=== PATIENT | female | born 1980 ===

== ENCOUNTER 2018-03-15 20:08 | Emergency (ER) | payer SELFPAY ==
[2018-03-15 20:08] VITALS: BMI 31.8
[2018-03-15 20:16] VITALS: BP 148/94; PULSE 87; RESP 16; TEMP 98.4; O2SAT 99
--- NOTE | 2018-03-15 20:35 | ED PDOC ---
HPI: CCC, URI, Sore Throat Chief Complaint (Provider): ENT Problem History Per: Patient History/Exam Limitations: no limitations Onset/Duration Of Symptoms: Days Location Of Pain: Ear(s) Additional Complaint(s): Yoly Montero is a 37 year old female with a past medical history of hypertension who is presenting to the ED for evaluation of left ear ringing and pain onset 2 days ago. Patient reports inability to hear put of left ear and admits to using over the counter homeopathic ear drops with no relief of symptoms. She also complains of pain when opening and closing the jaw. PMD: none provided <Lobito Lowery - Last Filed: 03/15/18 23:02> <Speedy Irby - Last Filed: 03/17/18 04:41> Time Seen by Provider: 03/15/18 20:25 Chief Complaint (Nursing): ENT Problem Past Medical History Reviewed: Historical Data, Nursing Documentation, Vital Signs Vital Signs: Last Vital Signs Temp 98.4 F 03/15/18 20:13 Pulse 87 03/15/18 20:13 Resp 16 03/15/18 20:13 BP 148/94 H 03/15/18 20:13 Pulse Ox 99 03/15/18 20:13 - Medical History PMH: HTN Denies: Chronic Kidney Disease - Surgical History Surgical History: No Surg Hx - Family History Family History: States: Unknown Family Hx - Immunization History Hx Tetanus Toxoid Vaccination: No Hx Influenza Vaccination: No Hx Pneumococcal Vaccination: No <Lobito Lowery - Last Filed: 03/15/18 23:02> Vital Signs: Last Vital Signs Temp 98.4 F 03/15/18 20:13 Pulse 87 03/15/18 20:13 Resp 16 03/15/18 20:13 BP 148/94 H 03/15/18 20:13 Pulse Ox 99 03/15/18 23:02 <Speedy Irby - Last Filed: 03/17/18 04:41> - Home Medications Home Medications: Ambulatory Orders Medication Instructions Recorded Pantoprazole Sodium [Protonix] 40 mg PO DAILY #14 ect 08/09/17 RX: Naproxen 500 mg PO BID PRN #20 tab 10/31/17 predniSONE [Prednisone] 6 tab PO DAILY #69 tab 03/15/18 - Allergies Allergies/Adverse Reactions: Allergies Allergy/AdvReac Type Severity Reaction Status Date / Time No Known Allergies Allergy Verified 03/15/18 20:13 Review of Systems ROS Statement: Except As Marked, All Systems Reviewed And Found Negative ENT: Positive for: Ear Pain, Other (jaw pain) <Lobito Lowery Filed: 03/15/18 23:02> Physical Exam - Reviewed Nursing Documentation Reviewed: Yes Vital Signs Reviewed: Yes - Physical Exam Appears: Positive for: Non-toxic, No Acute Distress Head Exam: Positive for: ATRAUMATIC, NORMAL INSPECTION, NORMOCEPHALIC ENT: Positive for: TM Is/Are (Otosclerosis to left TM, no signs of exudate and swelling, non erythematous TM) Neurologic/Psych: Positive for: Alert, Oriented. Negative for: Motor/Sensory Deficits <Lobito Lowery Filed: 03/15/18 23:02> - ECG O2 Sat by Pulse Oximetry: 99 (RA) Pulse Ox Interpretation: Normal - Progress ED Course And Treament: prednisone 60 mg x 1 dose in ED <Lobito Lowery Filed: 03/15/18 23:02> Medical Decision Making Medical Decision Making: Time: 20:25 Upon provider evaluation, patient is stable and ready for discharge. Scribe Attestation: Documented by Ingris Silva, acting as a scribe for Lobito Lowery PA-C. Provider Scribe Attestation: All medical record entries made by the Scribe were at my direction and personally dictated by me. I have reviewed the chart and agree that the record accurately reflects my personal performance of the history, physical exam, medical decision making, and the department course for this patient. I have also personally directed, reviewed, and agree with the discharge instructions and disposition. <Lobito Lowery Filed: 03/15/18 23:02> Disposition - Patient ED Disposition Is Patient to be Admitted: No - Disposition Disposition Time: 20:30 <Lobito Lowery - Last Filed: 03/15/18 23:02> <Speedy Irby - Last Filed: 03/17/18 04:41> - Clinical Impression Clinical Impression: Sensorineural hearing loss (SNHL) of left ear, Left ear pain - Disposition Referrals: Phillip Murrell MD [Staff Provider] - Condition: STABLE Prescriptions: predniSONE [Prednisone] 6 tab PO DAILY #69 tab Instructions: Hearing Loss in Adults Print Language: GEORGIAN - PA / CORPORATE LEARNING CONSULTANT / Resident Statement /DO has reviewed & agrees with the documentation as recorded. <Speedy Irby - Last Filed: 03/17/18 04:41>
== END 2018-03-15 21:27 | disposition home or self-care (01) ==
LOC: H.ER 20:08
DX: H90.5 Unspecified sensorineural hearing loss (principal); I10 Essential (primary) hypertension

== ENCOUNTER 2018-04-10 17:57 | Emergency (ER) | payer SELFPAY ==
[2018-04-10 17:57] VITALS: BMI 31.8
[2018-04-10] MEDS ORDERED: Morphine 4 MG/ML VIAL IVP ONE (18:38)
[2018-04-10] MEDS ORDERED: Sodium Chloride 0.9% 1,000 ML IV STA (18:43)
--- NOTE | 2018-04-10 19:01 | ED PDOC ---
HPI: Abdomen Time Seen by Provider: 04/10/18 18:38 Chief Complaint (Nursing): Fever Chief Complaint (Provider): Abdominal pain History Per: Patient History/Exam Limitations: no limitations Onset/Duration Of Symptoms: Days (several) Location Of Pain/Discomfort: Suprapubic Associated Symptoms: Urinary Symptoms Additional Complaint(s): Patient is a 37 y/o female with no significant PMHx who presents to the ED complaining of several days of worsening suprapubic pain now associated with fever, nausea, and left side flank pain. Patient additionally reports that she has had increased urinary frequency and burning on urination as well as urinating smaller amounts. Patient states she has had UTI in the past which this felt like but now the pain is more severe. Past Medical History Reviewed: Historical Data, Nursing Documentation, Vital Signs Vital Signs: Last Vital Signs Temp 102.8 F H 04/10/18 18:14 Pulse 135 H 04/10/18 18:14 Resp 20 04/10/18 18:14 BP 123/71 04/10/18 18:14 Pulse Ox 99 04/10/18 18:14 - Medical History PMH: HTN Denies: Chronic Kidney Disease - Family History Family History: States: Unknown Family Hx - Immunization History Hx Tetanus Toxoid Vaccination: No Hx Influenza Vaccination: No Hx Pneumococcal Vaccination: No - Home Medications Home Medications: Ambulatory Orders Medication Instructions Recorded Pantoprazole Sodium [Protonix] 40 mg PO DAILY #14 ect 08/09/17 Naproxen 500 mg PO BID PRN #20 tab 10/31/17 predniSONE [Prednisone] 6 tab PO DAILY #69 tab 03/15/18 - Allergies Allergies/Adverse Reactions: Allergies Allergy/AdvReac Type Severity Reaction Status Date / Time No Known Allergies Allergy Verified 04/10/18 18:14 Review of Systems ROS Statement: Except As Marked, All Systems Reviewed And Found Negative Constitutional: Positive for: Fever Gastrointestinal: Positive for: Nausea, Abdominal Pain Genitourinary Female: Positive for: Dysuria, Frequency Physical Exam - Reviewed Nursing Documentation Reviewed: Yes Vital Signs Reviewed: Yes - Physical Exam Appears: Positive for: Non-toxic (flushed), No Acute Distress (but in pain) Head Exam: Positive for: ATRAUMATIC, NORMOCEPHALIC Skin: Positive for: Normal Color, Warm Eye Exam: Positive for: EOMI, Normal appearance, PERRL Cardiovascular/Chest: Positive for: Regular Rate, Rhythm, Tachycardia Respiratory: Positive for: Normal Breath Sounds. Negative for: Respiratory Distress Gastrointestinal/Abdominal: Positive for: Tenderness (suprapubic and left flank) Extremity: Positive for: Normal ROM. Negative for: Pedal Edema, Deformity Neurologic/Psych: Positive for: Alert, Oriented. Negative for: Motor/Sensory Deficits - ECG O2 Sat by Pulse Oximetry: 99 (RA) Pulse Ox Interpretation: Normal Medical Decision Making Medical Decision Making: Time: 18:56 Initial Impression: Workup for pylonephritis Initial Plan: IV fluids Bladder US Kidney US Time: 19:00 Patient care endorsed to Dr. Law pending US. Scribe Attestation: Documented by Dax Middleton acting as a scribe for Joslyn Khan MD Provider Scribe Attestation: All medical record entries made by the Scribe were at my direction and personally dictated by me. I have reviewed the chart and agree that the record accurately reflects my personal performance of the history, physical exam, medical decision making, and the department course for this patient. I have also personally directed, reviewed, and agree with the discharge instructions and disposition. Disposition - Disposition
[2018-04-10 19:07] LABS: SQUAMOUS EPITHIAL 5 /hpf (0-5); URINE BACTERIA RARE (<OCC); URINE BILIRUBIN NEGATIVE (NEGATIVE); URINE BLOOD SMALL (NEGATIVE); URINE CLARITY SLIGHTY-CLOUDY (Clear); URINE COLOR YELLOW (YELLOW); URINE GLUCOSE (UA) NEG (Normal); URINE LEUKOCYTE ESTERASE SMALL Leu/uL (Negative); URINE PROTEIN 30 mg/dL (NEGATIVE); URINE UROBILINOGEN 0.2-1.0 mg/dL (0.2-1.0)
[2018-04-10 19:08] LABS: BASO # 0.1 K/uL (0.0-0.2); BASO % 0.6 % (0.0-2.0); LYMPH # 1.6 K/uL (1.0-4.3); LYMPH % 12.2 % (20.0-40.0); MEAN CELL VOLUME 80.9 fl (81.0-99.0); MEAN CORPUSCULAR HGB CONC 32.1 g/dL (33.0-37.0); MEAN PLATELET VOLUME 9.3 fl (7.2-11.7); MONO # 1.3 K/uL (0.0-0.8); MONO % 9.5 % (0.0-10.0); NEUT # 10.4 K/uL (1.8-7.0); NEUT % 77.7 % (50.0-75.0); RBC 4.99 Mil/uL (3.80-5.20); RED CELL DISTRIBUTION WIDTH 13.9 % (11.5-14.5); WHITE BLOOD COUNT 13.3 K/uL (4.8-10.8)
[2018-04-10 19:09] LABS: ALB/GLOB RATIO 1.1 (1.0-2.1); ALBUMIN 4.6 g/dL (3.5-5.0); ALT/SGPT 43 U/L (9-52); AST/SGOT 50 U/L (14-36); BLOOD UREA NITROGEN 7 mg/dl (7-17); CALCIUM 8.9 mg/dL (8.4-10.2); GFR NON-AFRICAN AMERICAN > 60; LIPASE 43 U/L (23-300)
--- NOTE | 2018-04-10 19:47 | ED PDOC ---
- Laboratory Results Result Diagrams: 04/10/18 18:50 04/10/18 18:50 - ECG O2 Sat by Pulse Oximetry: 99 (RA) Pulse Ox Interpretation: Normal Medical Decision Making Medical Decision Making: Time: 19:00 Patient care endorsed from Dr. Khan to Dr. Law pending US. R/o Pylo. Time: 22:13 US Renal COMMENTS: The right kidney measures 10.9 x 4 x 4.5 cm and the left kidney measures 11.4 x 3.9 x 4.3 cm. Both kidneys are free of hydronephrosis. There is no evidence of solid or cystic mass. There is no perinephric fluid. There is no renal calculus. Both kidneys demonstrate inhomogeneous cortex. The urinary bladder distends normally. The urinary bladder wall thickness measures 6 mm. Pre-void volume is 10.5 x 7.4 x 9.8 cm; 398.7 ml. There is no evidence of obvious intrinsic or extrinsic mass. There is minimal post-void residual identified on the post-void portion of the examination. Post-void volume is 1.6 x 1.2 x 2.4; 2.4 ml. There is no evidence of obvious pelvic mass. Bilateral ureteral jets are observed. IMPRESSION: 1. Inhomogeneous kidneys bilaterally. Consider follow up with CT Urogram to exclude pyelonephritis. 2. Post-void volume of 2.4 ml. Time: 22:41 CT Abd/Pelvis ordered. Time: 0319 Ct Abdomen/Pelvis FINDINGS: LUNG BASES: Bibasilar confluent opacities compatible with pneumonia. LIVER: Unremarkable. GALLBLADDER AND BILE DUCTS: The gallbladder appears within normal limits. No radioopaque gallstones are seen. No biliary ductal dilatation is evident. PANCREAS: Unremarkable. SPLEEN: Unremarkable. ADRENAL GLANDS: Unremarkable. KIDNEYS, URETERS, AND BLADDER: The kidneys appear within normal limits. There is no hydronephrosis or hydroureter. No urinary calculi are seen. STOMACH AND BOWEL: Thick walled descending sigmoid and colon and rectum with adjacent mild stranding compatible with proctolitis. Infectious and inflammatory etiologies are considered. Consider follow up with colonoscopy. APPENDIX: No evidence of acute appendicitis on CT examination. PERITONEUM: No free fluid. No free air. LYMPH NODES: No lymphadenopathy is evident. REPRODUCTIVE: Unremarkable as visualized. VASCULATURE: No evidence of abdominal aortic aneurysm. BONES: No aggressive appearing osseous lesion. No acute osseous pathology evident. IMPRESSION: 1. Proctolitis. Infectious and inflammatory etiologies are considered. Consider follow up with colonoscopy. 2. Bibasilar confluent opacities compatible with pneumonia. 0525 Patient is medically stable for discharge and instructed to follow up to cover proctocolitis and pneumonia pt states feels better, in no distress pt instructed to follow up with pcp and get referral for GI for further workup pt agreeable . Scribe Attestation: Documented by Dax Middleton acting as a scribe for Asif Law MD. Provider Scribe Attestation: All medical record entries made by the Scribe were at my direction and personally dictated by me. I have reviewed the chart and agree that the record accurately reflects my personal performance of the history, physical exam, medical decision making, and the department course for this patient. I have also personally directed, reviewed, and agree with the discharge instructions and disposition. Disposition - Clinical Impression Clinical Impression: Proctocolitis, Pneumonia - POA Present On Arrival: None - Disposition Disposition: Routine/Home Disposition Time: 05:25 Condition: STABLE Additional Instructions: follow up with your primary doctor dr amado in 1-2 days for referral to GI doctor return to the ED with any worsening or concerning symptoms Prescriptions: Amoxicillin/Clavulanate [Augmentin 875 MG-125 MG] 1 tab PO BID #20 tab Instructions: Pneumonia in Adults, Proctitis Forms: [employer] (C[place]ican), [employer] (Mauritian), [facility] ED School/Work Excuse Print Language: FRENCH
[2018-04-10] MEDS ORDERED: Iohexol 240 (50 ml) PO ONE (22:41)
[2018-04-11] MEDS ORDERED: Iohexol 240 (50 ml) ONE
[2018-04-11] MEDS ORDERED: Iohexol 300 100 ML IJ ONE (01:42)
[2018-04-11] MEDS ORDERED: Sodium Chloride 0.9% 50 ML IV ONE (01:42)
[2018-04-11 03:33] VITALS: TEMP 98
[2018-04-11 05:36] VITALS: BP 110/59; PULSE 84; RESP 20
[2018-04-11 06:38] VITALS: O2SAT 99
--- NOTE | 2018-04-11 10:35 | CT ---
Date of service: 04/11/2018 PROCEDURE: CT Abdomen and Pelvis with contrast HISTORY: abd pain COMPARISON: None. TECHNIQUE: Contrast dose: 95 mL of Omnipaque 300 intravenously. Axial and reformatted coronal and sagittal CT images of the abdomen and pelvis were obtained after IV and oral contrast administration. Radiation dose: Total exam DLP = 603.18 mGy-cm. This CT exam was performed using one or more of the following dose reduction techniques: Automated exposure control, adjustment of the mA and/or kV according to patient size, and/or use of iterative reconstruction technique. FINDINGS: LOWER THORAX: There are small linear opacities at the lung bases likely atelectasis. No evidence of pleural effusion LIVER: Mild hepatic steatosis is noted. GALLBLADDER AND BILE DUCTS: Unremarkable. PANCREAS: Unremarkable. No gross lesion or ductal dilatation. SPLEEN: Unremarkable. ADRENALS: Unremarkable. No mass. KIDNEYS AND URETERS: There is patchy enhancement of the left kidney associated with mild dilatation of the collecting system which demonstrate diffuse wall thickening. Findings suspicious for pyelonephritis and UTI. The right kidney is grossly unremarkable. VASCULATURE: Unremarkable. No aortic aneurysm. No aortic atherosclerotic calcification or mural plaque present. BOWEL: There is nonspecific mild fat stranding adjacent to the descending and proximal sigmoid colon. No definite evidence of diverticulitis or colitis in this study. No evidence of bowel obstruction. APPENDIX: Normal appendix. PERITONEUM: Unremarkable. No free fluid. No free air. LYMPH NODES: Unremarkable. No enlarged lymph nodes. BLADDER: Unremarkable. REPRODUCTIVE: Unremarkable. BONES: No acute fracture. OTHER FINDINGS: None. IMPRESSION: Findings suggestive of pyelonephritis and UT I. No evidence of abscess formation or obstructing stone. Nonspecific slight fat stranding noted adjacent to the left colon without definite CT evidence of diverticulitis or colitis. Preliminary report was submitted to the referring physician. The above findings concerning for pyelonephritis were not mentioned in the preliminary report. The above findings were reported to and discussed with the PA in the emergency roomDeshaun Garcias at 10:15 a.m. on 04/11/2018.
--- NOTE | 2018-04-11 12:53 | US ---
Date of service: 04/10/2018 PROCEDURE: Ultrasound of the Kidneys HISTORY: rule out pyelonephritis COMPARISON: None available. TECHNIQUE: Sonogram of the kidneys. FINDINGS: RIGHT KIDNEY: Measures: 10.9 x 4 x 4.5 cm. Normal in size, contour and with mild heterogeneous echogenicity. No stone, solid mass lesion or hydronephrosis visualized. LEFT KIDNEY: Measures: 11.4 x 3.9 x 4.3 cm. Normal in size, contour and with mild heterogeneous echogenicity. No stone, solid mass lesion or hydronephrosis visualized. OTHER FINDINGS: The urinary bladder is grossly unremarkable. Bilateral ureteral jets are noted. The calculated postvoid residual in the bladder is 2.3 m IMPRESSION: Heterogeneous echogenicity of the kidneys more prominent on the left. No evidence of significant hydronephrosis or obstructing stone. Preliminary report with concordant findings was submitted to the referring physician.
--- NOTE | 2018-04-11 13:01 | CARD ---
APPROVED REPORT Date of service: 04/10/2018 EKG Measurement Heart [id number] <Conclusion> Sinus tachycardia Otherwise normal ECG
== END 2018-04-11 05:44 | disposition home or self-care (01) ==
LOC: H.ER 17:57
DX: J18.9 Pneumonia, unspecified organism (principal); K51.30 Ulcerative (chronic) rectosigmoiditis without complications; I10 Essential (primary) hypertension
CPT/HCPCS: 74177; 76770; 76857; 80053; 81003; 81025; 83690; 85025; 87040; 87086; 87181; 93005; 96361; 96374; 96375; 99284; J1885; J2270; J7030; Q9966; Q9967

== ENCOUNTER 2018-04-12 21:37 | Inpatient (IN) | payer OTHER ==
[2018-04-12 21:38] VITALS: BMI 31.8
[2018-04-12] MEDS ORDERED: Sodium Chloride 0.9% 1,000 ML IV STA (22:39)
[2018-04-12] MEDS ORDERED: Morphine 4 MG/ML VIAL IVP ONE (22:39)
[2018-04-12] MEDS ORDERED: cefTRIAXone (Rocephin) 1 gm Inj ONE (22:47)
[2018-04-12] MEDS ORDERED: Morphine 4 MG/ML VIAL ONE (22:47)
[2018-04-12 23:12] LABS: BASO # 0.1 K/uL (0.0-0.2); BASO % 0.7 % (0.0-2.0); EOS % 0.1 % (0.0-4.0); HEMOGLOBIN 12.2 g/dL (12.0-16.0); LYMPH # 1.9 K/uL (1.0-4.3); LYMPH % 15.4 % (20.0-40.0); MEAN CELL VOLUME 79.4 fl (81.0-99.0); MEAN CORPUSCULAR HEMOGLOBIN 26.1 pg (27.0-31.0); MEAN CORPUSCULAR HGB CONC 32.9 g/dL (33.0-37.0); MEAN PLATELET VOLUME 9.2 fl (7.2-11.7); MONO # 1.1 K/uL (0.0-0.8); MONO % 9.3 % (0.0-10.0); NEUT % 74.5 % (50.0-75.0); NRBC % 0.1 % (0.0-0.0); RBC 4.67 Mil/uL (3.80-5.20); RED CELL DISTRIBUTION WIDTH 13.7 % (11.5-14.5); WHITE BLOOD COUNT 12.1 K/uL (4.8-10.8)
[2018-04-12 23:17] LABS: VENOUS BLOOD GAS BASE EXCESS 2.2 mmol/L (0.0-2.0); VENOUS BLOOD GAS PCO2 33 mmHg (40-60); VENOUS BLOOD GAS PO2 49 mm/Hg (30-55); VENOUS BLOOD PH 7.49 (7.32-7.43)
[2018-04-12 23:19] LABS: SQUAMOUS EPITHIAL 15 /hpf (0-5); URINE BACTERIA RARE (<OCC); URINE BILIRUBIN NEGATIVE (NEGATIVE); URINE BLOOD SMALL (NEGATIVE); URINE CLARITY CLOUDY (Clear); URINE COLOR YELLOW (YELLOW); URINE GLUCOSE (UA) NEG (Normal); URINE LEUKOCYTE ESTERASE TRACE Leu/uL (Negative); URINE PROTEIN 30 mg/dL (NEGATIVE)
--- NOTE | 2018-04-12 23:26 | ED PDOC ---
HPI: Abdomen Time Seen by Provider: 04/12/18 22:27 Chief Complaint (Nursing): Abdominal Pain Chief Complaint (Provider): Abdominal Pain History Per: Patient History/Exam Limitations: no limitations Onset/Duration Of Symptoms: Days (x5) Additional Complaint(s): Patient is a 37 y/o female who presents to the ED complaining of fever, abdominal pain, and back pain, onset x5 days ago. Patient reports associated nausea as well as some dysuria and a little bit of vomiting. Patient states she was seen here April 10 and had labs and CT done with diagnosis of colitis and was discharged with Augmentin. Patient reports she has been taking her medications as indicated but the pain has not been getting better. Patient additionally states that she was called by someone at the ED to return here. PMD: Jabari Rios Past Medical History Reviewed: Historical Data, Nursing Documentation, Vital Signs Vital Signs: Last Vital Signs Temp 100.4 F H 04/12/18 22:10 Pulse 120 H 04/12/18 22:10 Resp 16 04/12/18 22:10 BP 134/79 04/12/18 22:10 Pulse Ox 97 04/12/18 22:10 - Medical History PMH: HTN Denies: Chronic Kidney Disease - Surgical History Surgical History: - Family History Family History: States: No Known Family Hx, Unknown Family Hx - Social History Current smoker - smoking cessation education provided: No Alcohol: None Drugs: Denies - Immunization History Hx Tetanus Toxoid Vaccination: No Hx Influenza Vaccination: No Hx Pneumococcal Vaccination: No - Home Medications Home Medications: Ambulatory Orders Medication Instructions Recorded Amoxicillin/Clavulanate [Augmentin 1 tab PO BID #20 tab 04/11/18 875 MG-125 MG] - Allergies Allergies/Adverse Reactions: Allergies Allergy/AdvReac Type Severity Reaction Status Date / Time No Known Allergies Allergy Verified 04/12/18 22:10 Review of Systems ROS Statement: Except As Marked, All Systems Reviewed And Found Negative Constitutional: Positive for: Fever Gastrointestinal: Positive for: Nausea, Abdominal Pain, Diarrhea. Negative for: Vomiting Genitourinary Female: Positive for: Dysuria Physical Exam - Reviewed Nursing Documentation Reviewed: Yes Vital Signs Reviewed: Yes - Physical Exam Appears: Positive for: Well, Non-toxic, No Acute Distress Head Exam: Positive for: ATRAUMATIC, NORMOCEPHALIC Skin: Positive for: Normal Color, Warm. Negative for: Rash Eye Exam: Positive for: EOMI, Normal appearance, PERRL ENT: Positive for: Normal ENT Inspection Neck: Positive for: Normal, Painless ROM, Supple Cardiovascular/Chest: Positive for: Regular Rate, Rhythm, Tachycardia Respiratory: Positive for: Normal Breath Sounds. Negative for: Respiratory Distress Gastrointestinal/Abdominal: Positive for: Tenderness (epigastric) Back: Positive for: L CVA Tenderness, R CVA Tenderness Extremity: Positive for: Normal ROM. Negative for: Pedal Edema Neurologic/Psych: Positive for: Alert, Oriented. Negative for: Motor/Sensory Deficits - Laboratory Results Result Diagrams: 04/12/18 22:50 - ECG O2 Sat by Pulse Oximetry: 97 (RA) Pulse Ox Interpretation: Normal Medical Decision Making Medical Decision Making: Time: 22:39 Initial Impression: Abdominal pain, back pain, fever Differential includes UTI, pyelonephritis, sepsis Initial Plan: VBG Shock panel CMP Lipase CBC w/ diff Morphine IV fluids Rocephin Acetaminophen Blood culture Urine C&S Time: 23:13 Discussed with Wilber Felix who said patient needs to be admitted to hospitalist here. Spoke with Dr. Walton for admission. Following is patient's CT from her visit to ED on 04/10/18 Time: 22:31 CT AP w/ contrast FINDINGS: LOWER THORAX: There are small linear opacities at the lung bases likely atelectasis. No evidence of pleural effusion LIVER: Mild hepatic steatosis is noted. GALLBLADDER AND BILE DUCTS: Unremarkable. PANCREAS: Unremarkable. No gross lesion or ductal dilatation. SPLEEN: Unremarkable. ADRENALS: Unremarkable. No mass. KIDNEYS AND URETERS: There is patchy enhancement of the left kidney associated with mild dilatation of the collecting system which demonstrate diffuse wall thickening. Findings suspicious for pyelonephritis and UTI. The right kidney is grossly unremarkable. VASCULATURE: Unremarkable. No aortic aneurysm. No aortic atherosclerotic calcification or mural plaque present. BOWEL: There is nonspecific mild fat stranding adjacent to the descending and proximal sigmoid colon. No definite evidence of diverticulitis or colitis in this study. No evidence of bowel obstruction. APPENDIX: Normal appendix. PERITONEUM: Unremarkable. No free fluid. No free air. LYMPH NODES: Unremarkable. No enlarged lymph nodes. BLADDER: Unremarkable. REPRODUCTIVE: Unremarkable. BONES: No acute fracture. OTHER FINDINGS: None. IMPRESSION: Findings suggestive of pyelonephritis and UT I. No evidence of abscess formation or obstructing stone. Nonspecific slight fat stranding noted adjacent to the left colon without definite CT evidence of diverticulitis or colitis. Preliminary report was submitted to the referring physician. The above findings concerning for pyelonephritis were not mentioned in the preliminary report. Scribe Attestation: Documented by Dax Middleton acting as a scribe for Malachi Gonzalez MD Provider Scribe Attestation: All medical record entries made by the Scribe were at my direction and personally dictated by me. I have reviewed the chart and agree that the record accurately reflects my personal performance of the history, physical exam, medical decision making, and the department course for this patient. I have also personally directed, reviewed, and agree with the discharge instructions and disposition. Disposition - Clinical Impression Clinical Impression: Pyelonephritis, Sepsis - Patient ED Disposition Is Patient to be Admitted: Yes Discussed With DrLuis Alberto: Dilma Walton Doctor Will See Patient In The: ED Counseled Patient/Family Regarding: Studies Performed, Diagnosis - Disposition Disposition Time: 23:00 Condition: FAIR - Pt Status Changed To: Hospital Disposition Of: Inpatient - Admit Certification Admit to Inpatient:: After my assessment, the patient will require hospitalization for at least two midnights. This is because of the severity of symptoms shown, intensity of services needed, and/or the medical risk in this patient being treated as an outpatient. - POA Present On Arrival: None
[2018-04-13 00:02] LABS: ALBUMIN 4.2 g/dL (3.5-5.0); ALT/SGPT 64 U/L (9-52); AST/SGOT 67 U/L (14-36); BLOOD UREA NITROGEN 4 mg/dl (7-17); CALCIUM 8.6 mg/dL (8.4-10.2); GFR NON-AFRICAN AMERICAN > 60; LIPASE 61 U/L (23-300)
[2018-04-13] MEDS: Sodium Chloride 0.9% 1,000 ML IV SCH ×3 (00:40→18:14)
--- NOTE | 2018-04-13 02:31 | CP.PCM.HP ---
Addendum entered and electronically signed by George Cunningham MD 04/13/18 09:57: pt seen and evaluated at bedside this morning. No acute events overnight. NAD. Afebrile, pt reports mild nausea but tolerated breakfast. Reports improved pain in her left back. No vomiting/diarrhea overnight. Denies fever/chills, CP/SOB/Palpitations, V/D/C/, urinary symptoms. O: Gen: AAOx3, NAD CVS: RRR, S1S2+, No MRG RESP: CTA b/l, no WRR Abd: +BS, Soft, NonTender/Nondistended/No guarding/no rigidity Back: Negative goldflams sign b/l Ext: no edema, DP pulses 2+ b/l A/P: 37 y/o female with PMHx remarkable for migraines, admitted for pyelonephritis -hemodynamically stable, afebrile -switched IV cipro to Rocephin -awaiting urine cx -fever/pain control -follow up AM labs for transaminemia/hypokalemia -c/w Lovenox for DVT PPx Original Note: History of Present Illness - History of Present Illness History of Present Illness: Pt is a 37 y/o female with pmhx of Migraines seen in ED 2 days ago, returns to ED today after being called and told she had abnormal CT findings and should return. Pt states she has had intermittent fevers, headache, and left flank pain for the past 6 days. 2 days ago she began feeling dysuria with frequent urination which prompted her ED visit on 04/10. During that ED visit, she was noted to be septic (fever 102.8, Tachycardia 135, WBC 13.3), U/A small LES and 10 RBC, and Abdominal CT prelim reading was significant for pneumonia and proctolitis. She was sent home on Augment po. Final report for Abdomen Pelvis CT was significant for Left Pyelonephritis (no proctitis or pnuemonia). Pt was called and informed of results and advised to return to ED. She reports continued urinary symptoms, flank pain, nausea fever, and headache. Has been taking Augmentin. Denies vomiting, anuria, hematuria, neck stiffness, motor/sensory deficits, cough/congestion, chest pain, or sob. ROS:Diarrhea (3 loose stools this morning), 10 point ROS negative unless otherwise mentioned in HPI PMD: None. Was being seen at [facility] but no longer covered by insurance PMHX: Migraines Medication: Unknown medication for migraine NKDA PSurgHx: 2 Csections (2009, 1999) Social: Lives with 2 children, denies smoking, alcohol, or illicit drug use ED COURSE: -Tachycardic 120, Febrile 100.4F, WBC 12.1, K 3.4, AST/ALT 67/64 -S/P Morphine 4mg IV, Zofran 4mg IV -S/P 1L Bolus NS -S/P 1gm Rocephin Admitted for Med/Surg for Sepsis, Pyelonephritis Present on Admission - Present on Admission Any Indicators Present on Admission: No Review of Systems - Cardiovascular Cardiovascular: absent: Chest Pain, Dyspnea, Leg Edema - Respiratory Respiratory: absent: Cough, Dyspnea - Gastrointestinal Gastrointestinal: absent: Hematochezia, Melena, Vomiting - Genitourinary Genitourinary: Dysuria, Flank Pain, Urinary Frequency, Urinary Urgency Past Patient History - Infectious Disease Hx of Infectious Diseases: None - Tetanus Immunizations Tetanus Immunization: Up to Date - Past Social History Alcohol: None Drugs: Denies - CARDIAC Hx Hypertension: Yes - PULMONARY Hx Respiratory Disorders: No - NEUROLOGICAL Hx Neurological Disorder: No - HEENT Hx HEENT Problems: No - RENAL Hx Chronic Kidney Disease: No - ENDOCRINE/METABOLIC Hx Endocrine Disorders: No - HEMATOLOGICAL/ONCOLOGICAL Hx Blood Disorders: No - INTEGUMENTARY Hx Dermatological Problems: No - MUSCULOSKELETAL/RHEUMATOLOGICAL Hx Musculoskeletal Disorders: No - GASTROINTESTINAL Hx Gastrointestinal Disorders: No - GENITOURINARY/GYNECOLOGICAL Hx Genitourinary Disorders: No - PSYCHIATRIC Hx Psychophysiologic Disorder: No Hx Substance Use: No - SURGICAL HISTORY Hx Surgeries: No - ANESTHESIA Hx Anesthesia: No Meds Allergies/Adverse Reactions: Allergies Allergy/AdvReac Type Severity Reaction Status Date / Time No Known Allergies Allergy Verified 04/12/18 22:10 Physical Exam - Constitutional Appears: No Acute Distress (uncomfortable appearing) - Head Exam Head Exam: ATRAUMATIC, NORMAL INSPECTION - Eye Exam Eye Exam: Normal appearance, PERRL. absent: Scleral icterus - ENT Exam ENT Exam: Mucous Membranes Moist - Neck Exam Neck exam: Positive for: Full Rom. Negative for: Lymphadenopathy, Meningismus - Respiratory Exam Respiratory Exam: Clear to Auscultation Bilateral. absent: Accessory Muscle Use, Rales, Rhonchi, Wheezes - Cardiovascular Exam Cardiovascular Exam: Tachycardia, +S1, +S2. absent: Systolic Murmur - GI/Abdominal Exam GI & Abdominal Exam: Normal Bowel Sounds, Soft, Tenderness (Suprapubic, Left Flank). absent: Guarding - Extremities Exam Extremities exam: Positive for: normal inspection - Back Exam Back exam: CVA tenderness (L) - Neurological Exam Neurological exam: Alert, Oriented x3 - Psychiatric Exam Psychiatric exam: Anxious - Skin Skin Exam: Normal Color Results - Vital Signs Recent Vital Signs: Last Vital Signs Temp 98.5 F 04/13/18 01:06 EDT Pulse 99 H 04/12/18 23:29 Resp 17 04/12/18 23:29 BP 128/75 04/12/18 23:29 Pulse Ox 97 04/12/18 23:46 - Labs Result Diagrams: 04/12/18 22:50 04/12/18 23:34 Labs: Laboratory Results - last 24 hr 04/12/18 04/12/18 04/12/18 22:50 22:50 23:01 WBC 12.1 H RBC 4.67 Hgb 12.2 Hct 37.1 MCV 79.4 L MCH 26.1 L MCHC 32.9 L RDW 13.7 Plt Count 459 H MPV 9.2 Neut % (Auto) 74.5 Lymph % (Auto) 15.4 L Lander % (Auto) 9.3 Eos % (Auto) 0.1 Baso % (Auto) 0.7 Neut # (Auto) 9.0 H Lymph # (Auto) 1.9 Lander # (Auto) 1.1 H Eos # (Auto) 0.0 Baso # (Auto) 0.1 pO2 49 VBG pH 7.49 H VBG pCO2 33 L VBG HCO3 26.4 VBG Total CO2 26.1 VBG O2 Sat (Calc) 91.9 H VBG Base Excess 2.2 H VBG Potassium 4.6 Sodium 132.0 Chloride 104.0 Glucose 116 H Lactate 1.8 FiO2 21.0 Potassium Carbon Dioxide Anion Gap BUN Creatinine Est GFR ( Amer) Est GFR (Non-Af Amer) Random Glucose Calcium Total Bilirubin AST ALT Alkaline Phosphatase Total Protein Albumin Globulin Albumin/Globulin Ratio Lipase Venous Blood Potassium 4.6 Urine Color Yellow Urine Clarity Cloudy Urine pH 6.0 Ur Specific [place] 1.017 Urine Protein 30 Urine Glucose (UA) Neg Urine Ketones Negative Urine Blood Small Urine Nitrate Negative Urine Bilirubin Negative Urine Urobilinogen 4.0 H Ur Leukocyte Esterase Trace Urine RBC (Auto) 6 H Urine Microscopic WBC 9 H Ur Squamous Epith Cells 15 H Urine Bacteria Rare 04/12/18 23:34 WBC RBC Hgb Hct MCV MCH MCHC RDW Plt Count MPV Neut % (Auto) Lymph % (Auto) [place] % (Auto) Eos % (Auto) Baso % (Auto) Neut # (Auto) Lymph # (Auto) [place]ander # (Auto) Eos # (Auto) Baso # (Auto) pO2 VBG pH VBG pCO2 VBG HCO3 VBG Total CO2 VBG O2 Sat (Calc) VBG Base Excess VBG Potassium Sodium 138 Chloride 105 Glucose Lactate FiO2 Potassium 3.4 L Carbon Dioxide 22 Anion Gap 14 BUN 4 L Creatinine 0.5 L Est GFR ( Amer) > 60 Est GFR (Non-Af Amer) > 60 Random Glucose 105 Calcium 8.6 Total Bilirubin 0.3 AST 67 H D ALT 64 H D Alkaline Phosphatase 178 H D Total Protein 8.2 Albumin 4.2 Globulin 4.0 H Albumin/Globulin Ratio 1.0 Lipase 61 Venous Blood Potassium Urine Color Urine Clarity Urine pH Ur Specific [place] Urine Protein Urine Glucose (UA) Urine Ketones Urine Blood Urine Nitrate Urine Bilirubin Urine Urobilinogen Ur Leukocyte Esterase Urine RBC (Auto) Urine Microscopic WBC Ur Squamous Epith Cells Urine Bacteria Assessment & Plan - Assessment and Plan (Free Text) Assessment: 37 y/o female with pmhx of Migraines admitted for Pyelonephritits. #Pyelonephritis -Hemodynamically stable -Septic on admission: Tachycardic 120, Febrile 100.4F, WBC 12.1, Lactic Acid 1.7, +CT Left peripnephric stranding -IV Ciprofloxacin 400ml IV q12 -IV NS at 120cc -F/U Bcx, UCx, Serial CBC -Vitals q4 #Migraines -Tylenol prn for headaches #Transaminitis -Likely related to steahepatosis as noted on CT -F/U outpatient, consider RUQ -AST/ALT 67/64 # Hypokalemia -K 3.4 on admission, repleted -Serial CMP #DVT ppx, Lovenox 40SQ #Diet, Regular Stable Full Code Med/Surg
[2018-04-13] MEDS: Potassium CL 10mEq/100ml 100 ML IVPB SCH ×4 (02:54→04:25)
[2018-04-13 08:25] LABS: BASO # 0.1 K/uL (0.0-0.2); BASO % 1.2 % (0.0-2.0); EOS # 0.1 K/uL (0.0-0.7); EOS % 0.6 % (0.0-4.0); HEMOGLOBIN 11.4 g/dL (12.0-16.0); LYMPH % 33.8 % (20.0-40.0); MEAN CELL VOLUME 82.5 fl (81.0-99.0); MEAN CORPUSCULAR HEMOGLOBIN 26.6 pg (27.0-31.0); MEAN CORPUSCULAR HGB CONC 32.3 g/dL (33.0-37.0); MEAN PLATELET VOLUME 9.1 fl (7.2-11.7); MONO % 11.3 % (0.0-10.0); NEUT # 4.7 K/uL (1.8-7.0); NEUT % 53.1 % (50.0-75.0); NRBC % 0.2 % (0.0-0.0); RBC 4.29 Mil/uL (3.80-5.20); RED CELL DISTRIBUTION WIDTH 13.5 % (11.5-14.5); WHITE BLOOD COUNT 8.8 K/uL (4.8-10.8)
[2018-04-13 08:46] LABS: ALB/GLOB RATIO 1.1 (1.0-2.1); ALBUMIN 3.7 g/dL (3.5-5.0); ALT/SGPT 51 U/L (9-52); AST/SGOT 46 U/L (14-36); BLOOD UREA NITROGEN 3 mg/dl (7-17); CALCIUM 8.1 mg/dL (8.4-10.2); GFR NON-AFRICAN AMERICAN > 60
[2018-04-13] MEDS ORDERED: Ciprofloxacin 400mg/200ml D5W 400 MG/200 ML BAG IVPB SCH (09:00)
[2018-04-13] MEDS: Enoxaparin 40 mg Syringe SC SCH (09:15)
--- NOTE | 2018-04-13 14:09 | CP.PCM.CON ---
History of Present Illness - History of Present Illness History of Present Illness: Pt is a 37 y/o female , returns to ED today after being called and told she had abnormal CT findings Pt states she has had intermittent fevers, headache, and left flank pain with dysuria with frequent urination Was recently seen and discharged from ER with augmentin Her Abdomen Pelvis CT was significant for Left Pyelonephritis Now has ESBL + UTI with pyelo failed out pt rx PMD: None. PMHX: Migraines Medication: Unknown medication for migraine NKDA PSurgHx: 2 Csections (2009, 1999) Social: denies smoking, alcohol, or illicit drug use Review of Systems - Review of Systems All systems: reviewed and no additional remarkable complaints except - Constitutional Constitutional: As Per HPI Past Patient History - Infectious Disease Hx of Infectious Diseases: None - Tetanus Immunizations Tetanus Immunization: Up to Date - Past Medical History & Family History Past Medical History?: Yes - Past Social History Alcohol: None Drugs: Denies - CARDIAC Hx Hypertension: Yes - PULMONARY Hx Respiratory Disorders: No - NEUROLOGICAL Hx Neurological Disorder: No - HEENT Hx HEENT Problems: No - RENAL Hx Chronic Kidney Disease: No - ENDOCRINE/METABOLIC Hx Endocrine Disorders: No - HEMATOLOGICAL/ONCOLOGICAL Hx Blood Disorders: No - INTEGUMENTARY Hx Dermatological Problems: No - MUSCULOSKELETAL/RHEUMATOLOGICAL Hx Musculoskeletal Disorders: No - GASTROINTESTINAL Hx Gastrointestinal Disorders: No - GENITOURINARY/GYNECOLOGICAL Hx Genitourinary Disorders: No - PSYCHIATRIC Hx Psychophysiologic Disorder: No Hx Substance Use: No - SURGICAL HISTORY Hx Surgeries: No - ANESTHESIA Hx Anesthesia: No Meds Allergies/Adverse Reactions: Allergies Allergy/AdvReac Type Severity Reaction Status Date / Time No Known Allergies Allergy Verified 04/12/18 22:10 - Medications Medications: Current Medications Acetaminophen (Tylenol 325mg Tab) 650 mg PO Q6 PRN PRN Reason: Headache Last Admin: 04/13/18 08:56 Dose: 650 mg Acetaminophen (Tylenol 325mg Tab) 650 mg PO Q6 PRN PRN Reason: Fever >100.4 F Enoxaparin Sodium (Lovenox) 40 mg SC DAILY [facility]; Protocol Last Admin: 04/13/18 09:15 Dose: 40 mg Sodium Chloride (Sodium Chloride 0.9%) 1,000 mls @ 120 mls/hr IV .Q8H20M [facility] Stop: 04/14/18 00:15 Last Admin: 04/13/18 09:15 Dose: 120 mls/hr Meropenem 1 gm/ Sodium (Chloride) 100 mls @ 100 mls/hr IVPB Q8 [facility]; Protocol Ondansetron HCl (Zofran Inj) 4 mg IVP Q6 PRN PRN Reason: Nausea/Vomiting Physical Exam - Constitutional Appears: No Acute Distress - Head Exam Head Exam: ATRAUMATIC, NORMOCEPHALIC - Eye Exam Eye Exam: absent: Scleral icterus - ENT Exam ENT Exam: Mucous Membranes Dry - Neck Exam Neck exam: Negative for: Lymphadenopathy - Respiratory Exam Respiratory Exam: Decreased Breath Sounds, Clear to Auscultation Bilateral - Cardiovascular Exam Cardiovascular Exam: REGULAR RHYTHM - GI/Abdominal Exam GI & Abdominal Exam: Diminished Bowel Sounds, Soft, Tenderness - Rectal Exam Rectal Exam: Deferred - Exam Exam: absent: NORMAL INSPECTION - Extremities Exam Extremities exam: Negative for: pedal edema - Back Exam Back exam: CVA tenderness (R). absent: CVA tenderness (L) - Neurological Exam Neurological exam: Alert, CN II-XII Intact, Oriented x3, Reflexes Normal - Psychiatric Exam Psychiatric exam: Depressed - Skin Skin Exam: Dry Results - Vital Signs Recent Vital Signs: Last Vital Signs Temp 97.6 F 04/13/18 08:00 Pulse 80 04/13/18 08:00 Resp 19 04/13/18 08:00 BP 114/79 04/13/18 08:00 Pulse Ox 99 04/13/18 08:00 - Labs Result Diagrams: 04/14/18 06:00 04/14/18 06:00 Labs: Laboratory Results - last 24 hr 04/12/18 04/12/18 04/12/18 22:50 22:50 23:01 WBC 12.1 H RBC 4.67 Hgb 12.2 Hct 37.1 MCV 79.4 L MCH 26.1 L MCHC 32.9 L RDW 13.7 Plt Count 459 H MPV 9.2 Neut % (Auto) 74.5 Lymph % (Auto) 15.4 L [place] % (Auto) 9.3 Eos % (Auto) 0.1 Baso % (Auto) 0.7 Neut # (Auto) 9.0 H Lymph # (Auto) 1.9 Tucker # (Auto) 1.1 H Eos # (Auto) 0.0 Baso # (Auto) 0.1 pO2 49 VBG pH 7.49 H VBG pCO2 33 L VBG HCO3 26.4 VBG Total CO2 26.1 VBG O2 Sat (Calc) 91.9 H VBG Base Excess 2.2 H VBG Potassium 4.6 Sodium 132.0 Chloride 104.0 Glucose 116 H Lactate 1.8 FiO2 21.0 Potassium Carbon Dioxide Anion Gap BUN Creatinine Est GFR ( Amer) Est GFR (Non-Af Amer) Random Glucose Calcium Magnesium Total Bilirubin AST ALT Alkaline Phosphatase Total Protein Albumin Globulin Albumin/Globulin Ratio Lipase Venous Blood Potassium 4.6 Urine Color Yellow Urine Clarity Cloudy Urine pH 6.0 Ur Specific [place] 1.017 Urine Protein 30 Urine Glucose (UA) Neg Urine Ketones Negative Urine Blood Small Urine Nitrate Negative Urine Bilirubin Negative Urine Urobilinogen 4.0 H Ur Leukocyte Esterase Trace Urine RBC (Auto) 6 H Urine Microscopic WBC 9 H Ur Squamous Epith Cells 15 H Urine Bacteria Rare 04/12/18 04/13/18 04/13/18 23:34 07:00 07:00 WBC 8.8 RBC 4.29 Hgb 11.4 L Hct 35.4 MCV 82.5 D MCH 26.6 L MCHC 32.3 L RDW 13.5 Plt Count 420 H MPV 9.1 Neut % (Auto) 53.1 Lymph % (Auto) 33.8 Tucker % (Auto) 11.3 H Eos % (Auto) 0.6 Baso % (Auto) 1.2 Neut # (Auto) 4.7 Lymph # (Auto) 3.0 Tucker # (Auto) 1.0 H Eos # (Auto) 0.1 Baso # (Auto) 0.1 pO2 VBG pH VBG pCO2 VBG HCO3 VBG Total CO2 VBG O2 Sat (Calc) VBG Base Excess VBG Potassium Sodium 138 141 Chloride 105 109 H Glucose Lactate FiO2 Potassium 3.4 L 3.6 Carbon Dioxide 22 24 Anion Gap 14 12 BUN 4 L 3 L Creatinine 0.5 L 0.4 L Est GFR ( Amer) > 60 > 60 Est GFR (Non-Af Amer) > 60 > 60 Random Glucose 105 91 Calcium 8.6 8.1 L Magnesium 2.1 Total Bilirubin 0.3 0.3 AST 67 H D 46 H D ALT 64 H D 51 Alkaline Phosphatase 178 H D 142 H D Total Protein 8.2 7.0 Albumin 4.2 3.7 Globulin 4.0 H 3.3 Albumin/Globulin Ratio 1.0 1.1 Lipase 61 Venous Blood Potassium Urine Color Urine Clarity Urine pH Ur Specific [place] Urine Protein Urine Glucose (UA) Urine Ketones Urine Blood Urine Nitrate Urine Bilirubin Urine Urobilinogen Ur Leukocyte Esterase Urine RBC (Auto) Urine Microscopic WBC Ur Squamous Epith Cells Urine Bacteria Assessment & Plan (1) ESBL (extended spectrum beta-lactamase) producing bacteria infection Status: Acute (2) Pyelonephritis Status: Acute (3) Sepsis Status: Acute - Assessment and Plan (Free Text) Assessment: will likely need 10-14 days iv merrem
[2018-04-13] MEDS: Meropenem 1 GM in Sodium Chloride 0.9% 100 ML IVPB SCH ×2 (14:18→18:12)
[2018-04-14] MEDS: Meropenem 1 GM in Sodium Chloride 0.9% 100 ML IVPB SCH ×3 (00:51→16:35)
[2018-04-14 06:43] LABS: HEMOGLOBIN 11.8 g/dL (12.0-16.0); MEAN CELL VOLUME 80.6 fl (81.0-99.0); MEAN CORPUSCULAR HEMOGLOBIN 25.9 pg (27.0-31.0); MEAN CORPUSCULAR HGB CONC 32.2 g/dL (33.0-37.0); RBC 4.57 Mil/uL (3.80-5.20); RED CELL DISTRIBUTION WIDTH 13.7 % (11.5-14.5)
[2018-04-14 06:49] LABS: ALB/GLOB RATIO 1.1 (1.0-2.1); ALBUMIN 3.7 g/dL (3.5-5.0); ALT/SGPT 69 U/L (9-52); AST/SGOT 63 U/L (14-36); BLOOD UREA NITROGEN 3 mg/dl (7-17); CALCIUM 8.5 mg/dL (8.4-10.2); GFR NON-AFRICAN AMERICAN > 60
--- NOTE | 2018-04-14 08:44 | CP.PCM.PN ---
<Eryn Rosa - Last Filed: 04/14/18 11:59> Subjective - Date & Time of Evaluation Date of Evaluation: 04/14/18 Time of Evaluation: 08:44 - Subjective Subjective: Patient seen and evaluated at bedside. Patient resting comfortably, no acute events overnight and in NAD. Afebrile, Denies F/V/CP/SOB/chills. Pain to left back improved, denies any urinary symptoms. Objective - Vital Signs/Intake and Output Vital Signs (last 24 hours): Temp Pulse Resp BP Pulse Ox 97.8 F 81 19 96/69 L 98 04/14/18 08:15 04/14/18 08:15 04/14/18 08:15 04/14/18 08:15 04/14/18 08:15 - Medications Medications: Current Medications Acetaminophen (Tylenol 325mg Tab) 650 mg PO Q6 PRN PRN Reason: Headache Last Admin: 04/13/18 14:40 Dose: 650 mg Acetaminophen (Tylenol 325mg Tab) 650 mg PO Q6 PRN PRN Reason: Fever >100.4 F Enoxaparin Sodium (Lovenox) 40 mg SC DAILY [facility]; Protocol Last Admin: 04/13/18 09:15 Dose: 40 mg Meropenem 1 gm/ Sodium (Chloride) 100 mls @ 100 mls/hr IVPB Q8 [facility]; Protocol Last Admin: 04/14/18 00:51 Dose: 100 mls/hr Ibuprofen (Motrin Tab) 600 mg PO Q8 PRN PRN Reason: Headache Last Admin: 04/13/18 19:03 Dose: 600 mg Ondansetron HCl (Zofran Inj) 4 mg IVP Q6 PRN PRN Reason: Nausea/Vomiting - Labs Labs: 04/14/18 06:00 04/14/18 06:00 - Constitutional Appears: No Acute Distress - Head Exam Head Exam: ATRAUMATIC - Respiratory Exam Respiratory Exam: Clear to Ausculation Bilateral, NORMAL BREATHING PATTERN - Cardiovascular Exam Cardiovascular Exam: REGULAR RHYTHM - GI/Abdominal Exam GI & Abdominal Exam: Soft, Normal Bowel Sounds - Extremities Exam Extremities Exam: absent: Calf Tenderness, Pedal Edema - Neurological Exam Neurological Exam: Alert, Awake - Psychiatric Exam Psychiatric exam: Normal Affect, Normal Mood - Skin Skin Exam: Intact, Normal Color Assessment and Plan - Assessment and Plan (Free Text) Assessment: 37 yo female, with PMHx of migraines, admitted for Pyelonephritits Plan: 1) Pyelonephritis -Sepsis 2/2 to pyelonephritis; resolved -Septic on admission: Tachycardic 120, Febrile 100.4F, WBC 12.1 - hemodynamically stable -ID consulted- c/w Meropenem 1gm IVQ8 Day #[address] of [address] Mistry -Blood cx; No growth after 3 days -Urine cx; ESBL E coli, final 2) Migraines -Tylenol prn for headaches 3) Transaminemia, stable -Likely related to steahepatosis as noted on CT -F/U outpatient, consider RUQ -AST/ALT 63/69 -Hep panel; pending 4) Hypokalemia - Resolved, K 3.9 5)DVT ppx - Lovenox 40SQ 6) Code Status: - Full Code <Dilma Walton - Last Filed: 04/14/18 15:50> Objective - Vital Signs/Intake and Output Vital Signs (last 24 hours): Temp Pulse Resp BP Pulse Ox 98.2 F 78 18 139/81 99 04/14/18 13:53 04/14/18 13:53 04/14/18 13:53 04/14/18 13:53 04/14/18 10:30 - Medications Medications: Current Medications Acetaminophen (Tylenol 325mg Tab) 650 mg PO Q6 PRN PRN Reason: Headache Last Admin: 04/14/18 10:39 Dose: 650 mg Acetaminophen (Tylenol 325mg Tab) 650 mg PO Q6 PRN PRN Reason: Fever >100.4 F Enoxaparin Sodium (Lovenox) 40 mg SC DAILY [facility]; Protocol Last Admin: 04/14/18 09:40 Dose: 40 mg Meropenem 1 gm/ Sodium (Chloride) 100 mls @ 100 mls/hr IVPB Q8 [facility]; Protocol Last Admin: 04/14/18 09:42 Dose: 100 mls/hr Ibuprofen (Motrin Tab) 600 mg PO Q8 PRN PRN Reason: Headache Last Admin: 04/13/18 19:03 Dose: 600 mg Ondansetron HCl (Zofran Inj) 4 mg IVP Q6 PRN PRN Reason: Nausea/Vomiting Last Admin: 04/14/18 10:47 Dose: 4 mg - Labs Labs: 04/14/18 06:00 04/14/18 06:00 Attending/Attestation - Attestation I have personally seen and examined this patient.: Yes I have fully participated in the care of the patient.: Yes I have reviewed all pertinent clinical information, including history, physical exam and plan: Yes Notes (Text): 04/14/18 15:49 agree with findings and plan as above. ESBL ECOLI in urine completing a 14 day course of Merrem.
[2018-04-14] MEDS: Enoxaparin 40 mg Syringe SC SCH (09:40)
[2018-04-14] MEDS ORDERED: Lidocaine 1% Inj (20ml) ONE (13:50)
--- NOTE | 2018-04-14 14:10 | PCM.SURG1 ---
Surgeon's Initial Post Op Note - Surgeon's Notes Surgeon: Herrera Web Support Engineer: None Type of Anesthesia: Local Pre-Operative Diagnosis: IV access Operative Findings: Patent right basilic vein Post-Operative Diagnosis: Iv access Operation Performed: Right basilic vein 4F SL 35 cm PICC with the tip in the RA/SVC junction Specimen/Specimens Removed: None Estimated Blood Loss: EBL {In ML}: 1 Date of Surgery/Procedure: 04/14/18 Time of Surgery/Procedure: 14:05
[2018-04-14 15:59] LABS: HEPATITIS B SURFACE AG Negative (NEGATIVE)
[2018-04-14 16:05] LABS: HEPATITIS A IGM NEGATIVE (NEGATIVE); HEPATITIS B CORE AB NEGATIVE (NEGATIVE)
[2018-04-14 16:17] LABS: HEPATITIS C ANTIBODY NEGATIVE (NEGATIVE)
[2018-04-15] MEDS: Meropenem 1 GM in Sodium Chloride 0.9% 100 ML IVPB SCH ×3 (01:16→16:03)
[2018-04-15 06:52] LABS: HEMOGLOBIN 12.3 g/dL (12.0-16.0); MEAN CELL VOLUME 80.2 fl (81.0-99.0); MEAN CORPUSCULAR HEMOGLOBIN 25.7 pg (27.0-31.0); RBC 4.81 Mil/uL (3.80-5.20); RED CELL DISTRIBUTION WIDTH 13.8 % (11.5-14.5); WHITE BLOOD COUNT 8.1 K/uL (4.8-10.8)
[2018-04-15 07:28] LABS: ALB/GLOB RATIO 1.1 (1.0-2.1); ALT/SGPT 73 U/L (9-52); AST/SGOT 60 U/L (14-36); BLOOD UREA NITROGEN 9 mg/dl (7-17); CALCIUM 8.9 mg/dL (8.4-10.2); GFR NON-AFRICAN AMERICAN > 60
--- NOTE | 2018-04-15 09:17 | CP.PCM.PN ---
<Eryn Rosa - Last Filed: 04/15/18 13:55> Subjective - Date & Time of Evaluation Date of Evaluation: 04/15/18 Time of Evaluation: 09:14 - Subjective Subjective: Patient seen and evaluated at bedside and is resting comfortably. Patient is resting comfortably and in NAD. She denies any acute events overnight and is in no pain currently. Denies N/V/F/SOB/chills or any urinary symptoms. Objective - Vital Signs/Intake and Output Vital Signs (last 24 hours): Temp Pulse Resp BP Pulse Ox 98.2 F 76 20 133/85 98 04/15/18 08:26 04/15/18 08:26 04/15/18 08:26 04/15/18 08:26 04/15/18 08:26 - Medications Medications: Current Medications Acetaminophen (Tylenol 325mg Tab) 650 mg PO Q6 PRN PRN Reason: Headache Last Admin: 04/15/18 01:24 Dose: 650 mg Acetaminophen (Tylenol 325mg Tab) 650 mg PO Q6 PRN PRN Reason: Fever >100.4 F Enoxaparin Sodium (Lovenox) 40 mg SC DAILY [facility]; Protocol Last Admin: 04/14/18 09:40 Dose: 40 mg Meropenem 1 gm/ Sodium (Chloride) 100 mls @ 100 mls/hr IVPB Q8 [facility]; Protocol Last Admin: 04/15/18 01:16 Dose: 100 mls/hr Ibuprofen (Motrin Tab) 600 mg PO Q8 PRN PRN Reason: Headache Last Admin: 04/13/18 19:03 Dose: 600 mg Ondansetron HCl (Zofran Inj) 4 mg IVP Q6 PRN PRN Reason: Nausea/Vomiting Last Admin: 04/14/18 10:47 Dose: 4 mg - Labs Labs: 04/15/18 06:25 04/15/18 06:25 - Constitutional Appears: Non-toxic, No Acute Distress - Head Exam Head Exam: NORMAL INSPECTION - Eye Exam Pupil Exam: NORMAL ACCOMODATION - GI/Abdominal Exam GI & Abdominal Exam: Soft, Normal Bowel Sounds - Extremities Exam Extremities Exam: Normal Inspection. absent: Calf Tenderness, Pedal Edema - Back Exam Back Exam: NORMAL INSPECTION - Neurological Exam Neurological Exam: Alert, Awake, Oriented x3 - Psychiatric Exam Psychiatric exam: Normal Affect, Normal Mood Assessment and Plan - Assessment and Plan (Free Text) Assessment: 37 yo female, with PMHx of migraines, admitted for Pyelonephritits Plan: 1) Pyelonephritis -Sepsis 2/2 to pyelonephritis; resolved -Septic on admission: Tachycardic 120, Febrile 100.4F, WBC 12.1 - hemodynamically stable - PICC inserted -ID consulted- c/w Meropenem 1gm IVQ8 Day #3 of [address] Mistry -Blood cx; No growth after 3 days -Urine cx; ESBL E coli, final 2) Migraines -Tylenol prn for headaches 3) Transaminemia, stable -Likely related to steahepatosis as noted on CT -F/U outpatient, consider RUQ -AST/ALT 60/73 -Hep panel; negative 4) Hypokalemia - Resolved, K 4.3 5)DVT ppx - Lovenox 40SQ 6) Code Status: - Full Code <Dilma Walton - Last Filed: 04/15/18 16:05> Objective - Vital Signs/Intake and Output Vital Signs (last 24 hours): Temp Pulse Resp BP Pulse Ox 98.2 F 76 20 133/85 98 04/15/18 08:26 04/15/18 08:26 04/15/18 08:26 04/15/18 08:26 04/15/18 08:26 - Medications Medications: Current Medications Acetaminophen (Tylenol 325mg Tab) 650 mg PO Q6 PRN PRN Reason: Headache Last Admin: 04/15/18 01:24 Dose: 650 mg Acetaminophen (Tylenol 325mg Tab) 650 mg PO Q6 PRN PRN Reason: Fever >100.4 F Enoxaparin Sodium (Lovenox) 40 mg SC DAILY [facility]; Protocol Last Admin: 04/15/18 09:47 Dose: 40 mg Meropenem 1 gm/ Sodium (Chloride) 100 mls @ 100 mls/hr IVPB Q8 [facility]; Protocol Last Admin: 04/15/18 16:03 Dose: 100 mls/hr Ibuprofen (Motrin Tab) 600 mg PO Q8 PRN PRN Reason: Headache Last Admin: 04/13/18 19:03 Dose: 600 mg Ondansetron HCl (Zofran Inj) 4 mg IVP Q6 PRN PRN Reason: Nausea/Vomiting Last Admin: 04/14/18 10:47 Dose: 4 mg - Labs Labs: 04/15/18 06:25 04/15/18 06:25
[2018-04-15] MEDS: Enoxaparin 40 mg Syringe SC SCH (09:47)
--- NOTE | 2018-04-15 10:56 | CP.PCM.PN ---
Subjective - Date & Time of Evaluation Date of Evaluation: 04/15/18 Time of Evaluation: 08:00 - Subjective Subjective: afeb on iv rx Objective - Vital Signs/Intake and Output Vital Signs (last 24 hours): Temp Pulse Resp BP Pulse Ox 98.2 F 76 20 133/85 98 04/15/18 08:26 04/15/18 08:26 04/15/18 08:26 04/15/18 08:26 04/15/18 08:26 - Medications Medications: Current Medications Acetaminophen (Tylenol 325mg Tab) 650 mg PO Q6 PRN PRN Reason: Headache Last Admin: 04/15/18 01:24 Dose: 650 mg Acetaminophen (Tylenol 325mg Tab) 650 mg PO Q6 PRN PRN Reason: Fever >100.4 F Enoxaparin Sodium (Lovenox) [address] [facility]; Protocol Last Admin: 04/15/18 09:47 Dose: 40 mg Meropenem 1 gm/ Sodium (Chloride) 100 mls @ 100 mls/hr IVPB Q8 [facility]; Protocol Last Admin: 04/15/18 09:46 Dose: 100 mls/hr Ibuprofen (Motrin Tab) 600 mg PO Q8 PRN PRN Reason: Headache Last Admin: 04/13/18 19:03 Dose: 600 mg Ondansetron HCl (Zofran Inj) 4 mg IVP Q6 PRN PRN Reason: Nausea/Vomiting Last Admin: 04/14/18 10:47 Dose: 4 mg - Labs Labs: 04/15/18 06:25 04/15/18 06:25 - Constitutional Appears: Well - Head Exam Head Exam: ATRAUMATIC, NORMAL INSPECTION, NORMOCEPHALIC - Eye Exam Eye Exam: EOMI, Normal appearance, PERRL Pupil Exam: NORMAL ACCOMODATION, PERRL - ENT Exam ENT Exam: Mucous Membranes Moist, Normal Exam - Neck Exam Neck Exam: Full ROM, Normal Inspection. absent: Lymphadenopathy - Respiratory Exam Respiratory Exam: Clear to Ausculation Bilateral, NORMAL BREATHING PATTERN - Cardiovascular Exam Cardiovascular Exam: REGULAR RHYTHM, +S1, +S2. absent: Murmur - GI/Abdominal Exam GI & Abdominal Exam: Soft, Normal Bowel Sounds. absent: Tenderness - Rectal Exam Rectal Exam: NORMAL INSPECTION - Extremities Exam Extremities Exam: Full ROM, Normal Capillary Refill, Normal Inspection. absent: Joint Swelling, Pedal Edema - Back Exam Back Exam: NORMAL INSPECTION - Neurological Exam Neurological Exam: Alert, Awake, CN II-XII Intact, Normal Gait, Oriented x3 - Psychiatric Exam Psychiatric exam: Normal Affect, Normal Mood - Skin Skin Exam: Dry, Intact, Normal Color, Warm Assessment and Plan (1) ESBL (extended spectrum beta-lactamase) producing bacteria infection Status: Acute (2) Pyelonephritis Status: Acute (3) Sepsis Status: Acute - Assessment and Plan (Free Text) Assessment: d/c on IV Invanz
--- NOTE | 2018-04-15 14:58 | CP.PCM.DIS ---
<Eryn Rosa - Last Filed: 04/15/18 15:20> Provider - Provider Date of Admission: 04/13/18 20:08 Attending physician: Dilma Walton DO Time Spent in preparation of Discharge (in minutes): 30 Hospital Course - Lab Results Lab Results: Micro Results 04/12/18 22:50 Blood Blood Culture - Preliminary NO GROWTH AFTER 48 HOURS 04/12/18 23:20 Blood Blood Culture - Preliminary NO GROWTH AFTER 48 HOURS 04/12/18 22:50 Urine,Clean Catch Urine Culture - Final No Growth (<1,000 CFU/ML) Most Recent Lab Values WBC 8.1 K/uL (4.8-10.8) 04/15/18 06:25 RBC 4.81 Mil/uL (3.80-5.20) 04/15/18 06:25 Hgb 12.3 g/dL (12.0-16.0) 04/15/18 06:25 Hct 38.6 % (34.0-47.0) 04/15/18 06:25 MCV 80.2 fl (81.0-99.0) L 04/15/18 06:25 MCH 25.7 pg (27.0-31.0) L 04/15/18 06:25 MCHC 32.0 g/dL (33.0-37.0) L 04/15/18 06:25 RDW 13.8 % (11.5-14.5) 04/15/18 06:25 Plt Count 527 K/uL (130-400) H 04/15/18 06:25 MPV 9.1 fl (7.2-11.7) 04/13/18 07:00 Neut % (Auto) 53.1 % (50.0-75.0) 04/13/18 07:00 Lymph % (Auto) 33.8 % (20.0-40.0) 04/13/18 07:00 Edwards % (Auto) 11.3 % (0.0-10.0) H 04/13/18 07:00 Eos % (Auto) 0.6 % (0.0-4.0) 04/13/18 07:00 Baso % (Auto) 1.2 % (0.0-2.0) 04/13/18 07:00 Neut # (Auto) 4.7 K/uL (1.8-7.0) 04/13/18 07:00 Lymph # (Auto) 3.0 K/uL (1.0-4.3) 04/13/18 07:00 Edwards # (Auto) 1.0 K/uL (0.0-0.8) H 04/13/18 07:00 Eos # (Auto) 0.1 K/uL (0.0-0.7) 04/13/18 07:00 Baso # (Auto) 0.1 K/uL (0.0-0.2) 04/13/18 07:00 pO2 49 mm/Hg (30-55) 04/12/18 23:01 VBG pH 7.49 (7.32-7.43) H 04/12/18 23:01 VBG pCO2 33 mmHg (40-60) L 04/12/18 23: VBG HCO3 26.4 mmol/L 04/12/18 23: VBG Total CO2 26.1 mmol/L (22-28) 04/12/18 23:01 VBG O2 Sat (Calc) 91.9 % (40-65) H 04/12/18 23:01 VBG Base Excess 2.2 mmol/L (0.0-2.0) H 04/12/18 23:01 VBG Potassium 4.6 mmol/L (3.6-5.2) 04/12/18 23:01 Sodium 132.0 mmol/L (132-148) 04/12/18 23:01 Chloride 104.0 mmol/L (98-107) 04/12/18 23:01 Glucose 116 mg/dL (65-105) H 04/12/18 23:01 Lactate 1.8 mmol/L (0.7-2.1) 04/12/18 23: FiO2 21.0 % 04/12/18 23:01 Sodium 140 mmol/l (132-148) 04/15/18 06:25 Potassium 4.3 MMOL/L (3.6-5.0) 04/15/18 06:25 Chloride 105 mmol/L (98-107) 04/15/18 06:25 Carbon Dioxide 26 mmol/L (22-30) 04/15/18 06:25 Anion Gap 13 (10-20) 04/15/18 06:25 BUN 9 mg/dl (7-17) 04/15/18 06:25 Creatinine 0.4 mg/dl (0.7-1.2) L 04/15/18 06:25 Est GFR ( Amer) > 60 04/15/18 06:25 Est GFR (Non-Af Amer) > 60 04/15/18 06:25 Random Glucose 93 mg/dL (65-105) 04/15/18 06:25 Calcium 8.9 mg/dL (8.4-10.2) 04/15/18 06:25 Magnesium 2.1 MG/DL (1.6-2.3) 04/13/18 07:00 Total Bilirubin 0.1 mg/dl (0.2-1.3) L 04/15/18 06:25 AST 60 U/L (14-36) H 04/15/18 06:25 ALT 73 U/L (9-52) H 04/15/18 06:25 Alkaline Phosphatase 187 U/L (38-126) H 04/15/18 06:25 Total Protein 7.6 G/DL (6.3-8.2) 04/15/18 06:25 Albumin 4.0 g/dL (3.5-5.0) 04/15/18 06:25 Globulin 3.6 gm/dL (2.2-3.9) 04/15/18 06:25 Albumin/Globulin Ratio 1.1 (1.0-2.1) 04/15/18 06:25 Lipase 61 U/L (23-300) 04/12/18 23:34 Venous Blood Potassium 4.6 mmol/L (3.6-5.2) 04/12/18 23:01 Urine Color Yellow (YELLOW) 04/12/18 22:50 Urine Clarity Cloudy (Clear) 04/12/18 22:50 Urine pH 6.0 (5.0-8.0) 04/12/18 22:50 Ur Specific Pollock 1.017 (1.003-1.030) 04/12/18 22:50 Urine Protein 30 mg/dL (NEGATIVE) 04/12/18 22:50 Urine Glucose (UA) Neg mg/dL (Normal) 04/12/18 22:50 Urine Ketones Negative mg/dL (NEGATIVE) 04/12/18 22:50 Urine Blood Small (NEGATIVE) 04/12/18 22:50 Urine Nitrate Negative (NEGATIVE) 04/12/18 22:50 Urine Bilirubin Negative (NEGATIVE) 04/12/18 22:50 Urine Urobilinogen 4.0 mg/dL (0.2-1.0) H 04/12/18 22:50 Ur Leukocyte Esterase Trace Gianluca/uL (Negative) 04/12/18 22:50 Urine RBC (Auto) 6 /hpf (0-3) H 04/12/18 22:50 Urine Microscopic WBC 9 /hpf (0-5) H 04/12/18 22:50 Ur Squamous Epith Cells 15 /hpf (0-5) H 04/12/18 22:50 Urine Bacteria Rare (<OCC) 04/12/18 22:50 Hepatitis A IgM Ab Negative (NEGATIVE) 04/14/18 12:06 Hep Bs Antigen Negative (NEGATIVE) 04/14/18 12:06 Hep B Core IgM Ab Negative (NEGATIVE) 04/14/18 12:06 Hepatitis C Antibody Negative (NEGATIVE) 04/14/18 12:06 HIV 1&2 Antibody Screen Negative (NEGATIVE) 04/14/18 13:46 - Hospital Course Hospital Course: 37 yo female, with PMHx of migraines, admitted for Pyelonephritits Plan: 1) Pyelonephritis -Sepsis 2/2 to pyelonephritis; resolved -Septic on admission: Tachycardic 120, Febrile 100.4F, WBC 12.1 -hemodynamically stable -Blood cx; No growth after 3 days -Urine cx; ESBL E coli, final -D/C on PO Bactrim BID for 10 days Patient was found to have pyelonephritis on presentation secondary to ESBL E coli found on urinalysis. Patient was started on IV cipro and meropenem, leukocytosis resolved. Patient was discharged on Bactrim DS BID PO for 10 days and instructed to follow up in clinic. After an uneventful hospital stay, the patient was discharged home. - Date & Time of H&P Date of H&P: 04/15/18 Time of H&P: 14:59 Discharge Exam - Head Exam Head Exam: NORMAL INSPECTION - Eye Exam Eye Exam: Normal appearance Pupil Exam: NORMAL ACCOMODATION - Respiratory Exam Respiratory Exam: NORMAL BREATHING PATTERN - Cardiovascular Exam Cardiovascular Exam: REGULAR RHYTHM - GI/Abdominal Exam GI & Abdominal Exam: Normal Bowel Sounds, Unremarkable - Extremities Exam Extremities exam: normal capillary refill, normal inspection - Neurological Exam Neurological exam: Alert, CN II-XII Intact, Oriented x3 - Psychiatric Exam Psychiatric exam: Normal Affect, Normal Mood - Skin Skin Exam: Intact, Normal Color Discharge Plan - Follow Up Plan Condition: FAIR Disposition: HOME/ ROUTINE Instructions: E. coli Infection (DC), Sulfamethoxazole and Trimethoprim, Extended-Spectrum Beta Lactamase Infection, Urinary Tract Infection in Women (DC) Additional Instructions: take Bactrim twice a day as prescribed for 10 days follow up with [facility] in 1 week any worsening of symptoms please return to ED for further evaluation and treatment Referrals: [facility] [Outside] Leland Mistry MD [Staff Provider] - <Dilma Walton - Last Filed: 04/15/18 16:02> Provider - Provider Date of Admission: 04/13/18 20:08 Attending physician: Dilma Walton DO Hospital Course - Lab Results Lab Results: Micro Results 04/12/18 22:50 Blood Blood Culture - Preliminary NO GROWTH AFTER 48 HOURS 04/12/18 23:20 Blood Blood Culture - Preliminary NO GROWTH AFTER 48 HOURS 04/12/18 22:50 Urine,Clean Catch Urine Culture - Final No Growth (<1,000 CFU/ML) Most Recent Lab Values WBC 8.1 K/uL (4.8-10.8) 04/15/18 06:25 RBC 4.81 Mil/uL (3.80-5.20) 04/15/18 06:25 Hgb 12.3 g/dL (12.0-16.0) 04/15/18 06:25 Hct 38.6 % (34.0-47.0) 04/15/18 06:25 MCV 80.2 fl (81.0-99.0) L 04/15/18 06:25 MCH 25.7 pg (27.0-31.0) L 04/15/18 06:25 MCHC 32.0 g/dL (33.0-37.0) L 04/15/18 06:25 RDW 13.8 % (11.5-14.5) 04/15/18 06:25 Plt Count 527 K/uL (130-400) H 04/15/18 06:25 MPV 9.1 fl (7.2-11.7) 04/13/18 07:00 Neut % (Auto) 53.1 % (50.0-75.0) 04/13/18 07:00 Lymph % (Auto) 33.8 % (20.0-40.0) 04/13/18 07:00 Edwards % (Auto) 11.3 % (0.0-10.0) H 04/13/18 07:00 Eos % (Auto) 0.6 % (0.0-4.0) 04/13/18 07:00 Baso % (Auto) 1.2 % (0.0-2.0) 04/13/18 07:00 Neut # (Auto) 4.7 K/uL (1.8-7.0) 04/13/18 07:00 Lymph # (Auto) 3.0 K/uL (1.0-4.3) 04/13/18 07:00 Edwards # (Auto) 1.0 K/uL (0.0-0.8) H 04/13/18 07:00 Eos # (Auto) 0.1 K/uL (0.0-0.7) 04/13/18 07:00 Baso # (Auto) 0.1 K/uL (0.0-0.2) 04/13/18 07:00 pO2 49 mm/Hg (30-55) 04/12/18 23:01 VBG pH 7.49 (7.32-7.43) H 04/12/18 23:01 VBG pCO2 33 mmHg (40-60) L 04/12/18 23:01 VBG HCO3 26.4 mmol/L 04/12/18 23:01 VBG Total CO2 26.1 mmol/L (22-28) 04/12/18 23:01 VBG O2 Sat (Calc) 91.9 % (40-65) H 04/12/18 23:01 VBG Base Excess 2.2 mmol/L (0.0-2.0) H 04/12/18 23:01 VBG Potassium 4.6 mmol/L (3.6-5.2) 04/12/18 23:01 Sodium 132.0 mmol/L (132-148) 04/12/18 23:01 Chloride 104.0 mmol/L (98-107) 04/12/18 23:01 Glucose 116 mg/dL (65-105) H 04/12/18 23:01 Lactate 1.8 mmol/L (0.7-2.1) 04/12/18 23:01 FiO2 21.0 % 04/12/18 23:01 Sodium 140 mmol/l (132-148) 04/15/18 06:25 Potassium 4.3 MMOL/L (3.6-5.0) 04/15/18 06:25 Chloride 105 mmol/L (98-107) 04/15/18 06:25 Carbon Dioxide 26 mmol/L (22-30) 04/15/18 06:25 Anion Gap 13 (10-20) 04/15/18 06:25 BUN 9 mg/dl (7-17) 04/15/18 06:25 Creatinine 0.4 mg/dl (0.7-1.2) L 04/15/18 06:25 Est GFR ( Amer) > 60 04/15/18 06:25 Est GFR (Non-Af Amer) > 60 04/15/18 06:25 Random Glucose 93 mg/dL (65-105) 04/15/18 06:25 Calcium 8.9 mg/dL (8.4-10.2) 04/15/18 06:25 Magnesium 2.1 MG/DL (1.6-2.3) 04/13/18 07:00 Total Bilirubin 0.1 mg/dl (0.2-1.3) L 04/15/18 06:25 AST 60 U/L (14-36) H 04/15/18 06:25 ALT 73 U/L (9-52) H 04/15/18 06:25 Alkaline Phosphatase 187 U/L (38-126) H 04/15/18 06:25 Total Protein 7.6 G/DL (6.3-8.2) 04/15/18 06:25 Albumin 4.0 g/dL (3.5-5.0) 04/15/18 06:25 Globulin 3.6 gm/dL (2.2-3.9) 04/15/18 06:25 Albumin/Globulin Ratio 1.1 (1.0-2.1) 04/15/18 06:25 Lipase 61 U/L (23-300) 04/12/18 23:34 Venous Blood Potassium 4.6 mmol/L (3.6-5.2) 04/12/18 23:01 Urine Color Yellow (YELLOW) 04/12/18 22:50 Urine Clarity Cloudy (Clear) 04/12/18 22:50 Urine pH 6.0 (5.0-8.0) 04/12/18 22:50 Ur Specific Pollock 1.017 (1.003-1.030) 04/12/18 22:50 Urine Protein 30 mg/dL (NEGATIVE) 04/12/18 22:50 Urine Glucose (UA) Neg mg/dL (Normal) 04/12/18 22:50 Urine Ketones Negative mg/dL (NEGATIVE) 04/12/18 22:50 Urine Blood Small (NEGATIVE) 04/12/18 22:50 Urine Nitrate Negative (NEGATIVE) 04/12/18 22:50 Urine Bilirubin Negative (NEGATIVE) 04/12/18 22:50 Urine Urobilinogen 4.0 mg/dL (0.2-1.0) H 04/12/18 22:50 Ur Leukocyte Esterase Trace Gianluca/uL (Negative) 04/12/18 22:50 Urine RBC (Auto) 6 /hpf (0-3) H 04/12/18 22:50 Urine Microscopic WBC 9 /hpf (0-5) H 04/12/18 22:50 Ur Squamous Epith Cells 15 /hpf (0-5) H 04/12/18 22:50 Urine Bacteria Rare (<OCC) 04/12/18 22:50 Hepatitis A IgM Ab Negative (NEGATIVE) 04/14/18 12:06 Hep Bs Antigen Negative (NEGATIVE) 04/14/18 12:06 Hep B Core IgM Ab Negative (NEGATIVE) 04/14/18 12:06 Hepatitis C Antibody Negative (NEGATIVE) 04/14/18 12:06 HIV 1&2 Antibody Screen Negative (NEGATIVE) 04/14/18 13:46 Attending/Attestation - Attestation I have personally seen and examined this patient.: Yes I have fully participated in the care of the patient.: Yes I have reviewed all pertinent clinical information, including history, physical exam and plan: Yes Notes (Text): 04/15/18 16:02 Seen examined and discussed with resident. Agree with findings and plan as above.
[2018-04-15 16:28] VITALS: BP 125/86; PULSE 86; RESP 18; TEMP 98.3; O2SAT 96
--- NOTE | 2018-04-20 19:41 | VASCULAR ---
Procedure: Ultrasound and fluoroscopically placed Right upper extremity PICC. Clinical indication: Long-term IV antibiotics. Technique: The relative risks and indications of the procedure were explained to the patient and written informed consent obtained. The patient was placed supine on the angiographic table and the right arm prepped and draped in the usual sterile fashion. A tourniquet was applied to the right axilla. 1% lidocaine was used to anesthetize the skin and soft tissues at the puncture site above the elbow. The right basilic vein was punctured under direct ultrasound guidance with a micropuncture set. A permanent image was stored. A 0.018 guidewire was advanced centrally and used to measure the length to the SVC/RA junction. A 4 [place] single-lumen PICC, size 35 cm, was advanced to the SVC/RA junction under fluoroscopic guidance. The catheter was flushed and secured. The patient tolerated the procedure well. Postprocedure chest image was obtained to ensure location of the catheter tip at the SVC right atrial junction. Impression: Ultrasound and fluoroscopically placed right upper extremity PICC. A 4 [place] single-lumen PICC, size 35 cm was advanced to the SVC/RA junction. PICC ready for use.
== END 2018-04-15 18:10 | disposition home or self-care (01) | DRG 720 ==
LOC: H.ER 21:37 → H.ERHOLD 23:05 → INTOOBSV 23:05 → H.MEDSURG1 23:48 → OBSVTOIN 04-13 20:08
PROVIDERS: ADMIT Student in an Organized Health Care Education/Training Program; ATTEND Student in an Organized Health Care Education/Training Program
PROC: 05HY33Z Insertion of Infusion Device into Upper Vein, Percutaneous Approach (ICD-10-PCS; principal; 2018-04-14)
PROC: 3E03329 Introduction of Other Anti-infective into Peripheral Vein, Percutaneous Approach (ICD-10-PCS; 2018-04-14)
DX: A41.9 Sepsis, unspecified organism (principal); N10 Acute pyelonephritis; E87.6 Hypokalemia; B96.20 Unspecified Escherichia coli [E. coli] as the cause of diseases classified elsewhere; Z16.12 Extended spectrum beta lactamase (ESBL) resistance; I10 Essential (primary) hypertension; G43.909 Migraine, unspecified, not intractable, without status migrainosus; R74.0 Nonspecific elevation of levels of transaminase and lactic acid dehydrogenase [LDH]